=== PATIENT | female | born 1995 | race Two or more races ===

== ENCOUNTER 2021-04-14 22:19 | Emergency (ER) | payer OTHER ==
[2021-04-14] MEDS ORDERED: Midazolam 1 MG/ML 2 ML SDV IV ONE (22:20)
[2021-04-14] MEDS ORDERED: Lidocaine 1% 20 ML MDV INFILT ONE (22:20)
[2021-04-14] MEDS ORDERED: Sodium Chloride 0.9% 10 ML Syringe FLUSH PRN (22:35)
[2021-04-14] MEDS ORDERED: HYDROmorphone 2 MG/ML SDV ONE (22:40)
[2021-04-14] MEDS ORDERED: Lidocaine 2% Viscous Solution 15 ML Cup ONE (22:43)
[2021-04-14] MEDS ORDERED: Sodium Chloride 0.9% 1,000 ML IV SCH (22:45)
[2021-04-14] MEDS ORDERED: Lidocaine 2% Viscous Solution 15 ML Cup PO ONE (22:46)
[2021-04-14] MEDS ORDERED: Iopamidol 755 Mg/ML 100 ML Bottle IV ONE (22:56)
[2021-04-14] MEDS ORDERED: HYDROmorphone 2 MG/ML SDV IVPUSH ONE (23:06)
[2021-04-14] MEDS ORDERED: Ketorolac 30 MG/ML SDV IVPUSH STA (23:49)
[2021-04-14] MEDS ORDERED: Ondansetron 4 MG/2 ML SDV IVPUSH STA (23:49)
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
[2021-04-15] MEDS ORDERED: Midazolam 5 MG/ML 10 ML MDV IV STA (00:25)
[2021-04-15] MEDS ORDERED: Amoxicillin/Clavulanate K 875-125 MG Tab PO STA (01:02)
[2021-04-15] MEDS ORDERED: Thiamine 100 MG in Sodium Chloride 0.9% 100 ML IV STA (01:36)
[2021-04-15] MEDS ORDERED: Acetaminophen/HYDROcodone 325-5 MG Tab PO ONE (02:43)
== END 2021-04-15 02:55 | disposition home or self-care (01) ==
LOC: FB.ED 22:19
DX: S22.39XA Fracture of one rib, unspecified side, initial encounter for closed fracture (principal); S01.511A Laceration without foreign body of lip, initial encounter; F10.129 Alcohol abuse with intoxication, unspecified; Y90.5 Blood alcohol level of 100-119 mg/100 ml; V53.5XXA Driver of pick-up truck or van injured in collision with car, pick-up truck or van in traffic accident, initial encounter; Y92.410 Unspecified street and highway as the place of occurrence of the external cause
CPT/HCPCS: 12011; 36415; 70450; 71260; 72125; 74177; 80053; 80307; 81001; 82150; 83690; 84702; 85025; 85610; 85730; 96374; 96375; 99285; A9270; J1170; J1885; J2250; J2405; J3411; J7030; Q9967